=== PATIENT | female | born 1995 | race Two or more races ===

== ENCOUNTER 2020-01-14 03:10 | Emergency (ER) | payer BC ==
[2020-01-14] MEDS ORDERED: Sodium Chloride 0.9% 1,000 ML IV ONE (03:33)
--- NOTE | 2020-01-14 03:44 | EDM.PDOC ---
ED HPI GENERAL MEDICAL PROBLEM - General Chief Complaint: Abdominal Pain Stated Complaint: ABDOMINALPAIN Time Seen by Provider: 01/14/20 03:25 Source of Information: Reports: Patient History Limitations: Reports: No Limitations - History of Present Illness INITIAL COMMENTS - FREE TEXT/NARRATIVE: TRIAGE NOTE -- pt woke up around 12AM with sudden sharp pain to RLQ, claimed she vomited x 3 above. She continues to have nausea vomiting and pain in her abdomen. She had been in her usual state of health leading up to this. There is been no fever respiratory symptoms or any other symptoms of acute medical illness. There are no risk factors. Patient is healthy and takes no medications. She is a non-smoker. She has not taken any medication or tried any other measures to moderate her symptoms. Right Lower Abdomen Pain Score (Numeric/FACES): 10 - Related Data Allergies Allergy/AdvReac Type Severity Reaction Status Date / Time No Known Allergies Allergy Verified 01/14/20 03:26 Home Meds: Home Meds oxyCODONE HCl/Acetaminophen [Percocet 5-325 mg Tablet] 1 each PO Q6H PRN #10 tablet 01/14/20 [Rx] Social & Family History - Tobacco Use Smoking Status *Q: Never Smoker Second Hand Smoke Exposure: No - Caffeine Use Caffeine Use: Reports: None - Recreational Drug Use Recreational Drug Use: No ED ROS GENERAL - Review of Systems Review Of Systems: Comprehensive ROS is negative, except as noted in HPI. ED EXAM, GI/ABD - Physical Exam Exam: See Below Exam Limited By: No Limitations General Appearance: Alert, WD/WN, No Apparent Distress (But retching and uncomfortable) Eyes: Bilateral: Normal Appearance, EOMI Ears: Normal External Exam Nose: Normal Inspection Throat/Mouth: Normal Inspection Head: Atraumatic, Normocephalic Neck: Normal Inspection, Supple Respiratory/Chest: No Respiratory Distress, Lungs Clear, Normal Breath Sounds Cardiovascular: Regular Rate, Rhythm, No Edema GI/Abdominal Exam: Soft, Tender (Seems to be diffuse tenderness especially in the right lower abdomen). No: Guarding, Rebound Back Exam: Normal Inspection, CVA Tenderness (R) Extremities: Normal Inspection, Non-Tender Neurological: Alert, Oriented, Normal Cognition, No Motor/Sensory Deficits Psychiatric: Normal Affect Skin Exam: Warm, Dry Course - Vital Signs Last Recorded V/S: Last Vital Signs Temp 36.4 C 01/14/20 03:23 Pulse 95 01/14/20 03:23 Resp 15 01/14/20 03:23 BP 130/96 H 01/14/20 03:23 Pulse Ox 96 01/14/20 03:23 - Orders/Labs/Meds Orders: Active Orders 24 hr Category Date Time Status Abdomen Pelvis wo Cont [CT] Stat Exams 01/14/20 04:20 Taken CULTURE URINE [RM] Stat Lab 01/14/20 03:50 Received Labs: Laboratory Tests 01/14/20 01/14/20 01/14/20 Range/Units 03:30 03:30 03:50 WBC 11.11 H (3.98-10.04) K/mm3 RBC 4.91 (3.98-5.22) M/mm3 Hgb 14.6 (11.2-15.7) gm/dl Hct 44.1 (34.1-44.9) % MCV 89.8 (79.4-94.8) fl MCH 29.7 (25.6-32.2) pg MCHC 33.1 (32.2-35.5) g/dl RDW Std Deviation 41.4 (36.4-46.3) fL Plt Count 262 (182-369) K/mm3 MPV 11.0 (9.4-12.3) fl Neutrophils % (Manual) 68 H (40-60) % Band Neutrophils % 4 (0-10) % Lymphocytes % (Manual) 20 (20-40) % Atypical Lymphs % 0 % Monocytes % (Manual) 6 (2-10) % Eosinophils % (Manual) 2 (0.7-5.8) % Basophils % (Manual) 0 L (0.1-1.2) Platelet Estimate Adequate Plt Morphology Comment Normal RBC Morph Comment Normal Sodium 143 (136-145) mEq/L Potassium 3.5 (3.5-5.1) mEq/L Chloride 105 (98-107) mEq/L Carbon Dioxide 26 (21-32) mEq/L Anion Gap 15.5 H (5-15) BUN 12 (7-18) mg/dL Creatinine 0.9 (0.55-1.02) mg/dL Est Cr Clr Drug Dosing 78.36 mL/min Estimated GFR (MDRD) > 60 (>60) mL/min BUN/Creatinine Ratio 13.3 L (14-18) Glucose 145 H (74-106) mg/dL Calcium 9.2 (8.5-10.1) mg/dL Total Bilirubin 0.2 (0.2-1.0) mg/dL AST 18 (15-37) U/L ALT 27 (14-59) U/L Alkaline Phosphatase 67 (46-116) U/L Total Protein 7.9 (6.4-8.2) g/dl Albumin 4.1 (3.4-5.0) g/dl Globulin 3.8 gm/dL Albumin/Globulin Ratio 1.1 (1-2) Lipase 119 (73-393) U/L Urine Color Yellow (Yellow) Urine Appearance Clear (Clear) Urine pH 7.0 (5.0-8.0) Ur Specific [place] 1.025 (1.005-1.030) Urine Protein Negative (Negative) Urine Glucose (UA) Negative (Negative) Urine Ketones Negative (Negative) Urine Occult Blood 2+ H (Negative) Urine Nitrite Negative (Negative) Urine Bilirubin Negative (Negative) Urine Urobilinogen 0.2 (0.2-1.0) Ur Leukocyte Esterase Trace H (Negative) Urine RBC 5-10 H (0-5) /hpf Urine WBC 0-5 (0-5) /hpf Ur Squamous Epith Cells 0-5 (0-5) /hpf Urine Bacteria Moderate H (FEW) /hpf Urine Mucus Moderate H (FEW) /hpf Urine HCG, Qual (NEGATIVE) 01/14/20 Range/Units 03:50 WBC (3.98-10.04) K/mm3 RBC (3.98-5.22) M/mm3 Hgb (11.2-15.7) gm/dl Hct (34.1-44.9) % MCV (79.4-94.8) fl MCH (25.6-32.2) pg MCHC (32.2-35.5) g/dl RDW Std Deviation (36.4-46.3) fL Plt Count (182-369) K/mm3 MPV (9.4-12.3) fl Neutrophils % (Manual) (40-60) % Band Neutrophils % (0-10) % Lymphocytes % (Manual) (20-40) % Atypical Lymphs % % Monocytes % (Manual) (2-10) % Eosinophils % (Manual) (0.7-5.8) % Basophils % (Manual) (0.1-1.2) Platelet Estimate Plt Morphology Comment RBC Morph Comment Sodium (136-145) mEq/L Potassium (3.5-5.1) mEq/L Chloride (98-107) mEq/L Carbon Dioxide (21-32) mEq/L Anion Gap (5-15) BUN (7-18) mg/dL Creatinine (0.55-1.02) mg/dL Est Cr Clr Drug Dosing mL/min Estimated GFR (MDRD) (>60) mL/min BUN/Creatinine Ratio (14-18) Glucose (74-106) mg/dL Calcium (8.5-10.1) mg/dL Total Bilirubin (0.2-1.0) mg/dL AST (15-37) U/L ALT (14-59) U/L Alkaline Phosphatase (46-116) U/L Total Protein (6.4-8.2) g/dl Albumin (3.4-5.0) g/dl Globulin gm/dL Albumin/Globulin Ratio (1-2) Lipase (73-393) U/L Urine Color (Yellow) Urine Appearance (Clear) Urine pH (5.0-8.0) Ur Specific [place] (1.005-1.030) Urine Protein (Negative) Urine Glucose (UA) (Negative) Urine Ketones (Negative) Urine Occult Blood (Negative) Urine Nitrite (Negative) Urine Bilirubin (Negative) Urine Urobilinogen (0.2-1.0) Ur Leukocyte Esterase (Negative) Urine RBC (0-5) /hpf Urine WBC (0-5) /hpf Ur Squamous Epith Cells (0-5) /hpf Urine Bacteria (FEW) /hpf Urine Mucus (FEW) /hpf Urine HCG, Qual Negative (NEGATIVE) Meds: Medications Discontinued Medications Generic Name Dose Route Start Last Admin Trade Name Freq PRN Reason Stop Dose Admin Sodium Chloride 1,000 mls @ 1,000 mls/hr 01/14/20 03:33 01/14/20 03:41 Normal Saline IV 01/14/20 04:32 1,000 mls/hr ONETIME ONE Administration Ketorolac Tromethamine 30 mg 01/14/20 04:21 01/14/20 04:26 Toradol IVPUSH 04/16/20 04:22 30 mg ONETIME ONE Administration Ondansetron HCl 4 mg 01/14/20 04:03 01/14/20 04:09 Zofran IVPUSH 01/14/20 04:04 4 mg ONETIME ONE Administration - Re-Assessments/Exams Free Text/Narrative Re-Assessment/Exam: 01/14/20 05:09 The patient has some tenderness in the right flank as well as the right lower abdomen. There is microscopic hematuria. A CT scan was done without contrast and patient is noted to have an obstructing 4 mm stone in the distal right ureter with mild right hydronephrosis and hydroureter. Discussed fully with the patient. The usual instructions are being given. She is being given contact information for on-call urology in [place]. She is to call this morning and notified urologist of this visit and the finding. Further instructions per urology. Patient was cautioned regarding symptoms requiring return to ER. Any intractable vomiting not permitting intake of sufficient fluids, fever, other troubling symptoms return to ER. 01/14/20 05:13 Nausea has resolved completely. Pain adequately moderated with Toradol and patient is pain-free at discharge. Departure - Departure Time of Disposition: 05:13 Disposition: Home, Self-Care 01 Condition: Good Clinical Impression: Right distal ureteral calculus - Discharge Information Prescriptions: oxyCODONE HCl/Acetaminophen [Percocet 5-325 mg Tablet] 1 each PO Q6H PRN #10 tablet PRN Reason: Pain (Moderate 4-6) Instructions: Renal Colic Referrals: Car Traylor MD [Ordering Only Provider] - Forms: ED Department Discharge Additional Instructions: A small stone in the ureter which is the tube between the kidney and the bladder on the right side. The stone is about 4 mm which you should be able to pass. Drink copious amounts of fluids and maintain brisk urine output. Clear liquids are best. Return to ER for nausea and vomiting preventing good intake of fluids. Return for fever, increased pain, or any symptoms that are troubling. Call Dr. Traylor the urologist this morning and notify him of this visit and the findings. Expect additional instructions from him. You have received a liter of IV fluids in the ER as well as 30 mg of Toradol for the pain and 4 mg of Zofran for the nausea. You have a prescription for pain pills and you may use them as discussed. Sepsis Event Note - Evaluation Sepsis Screening Result: No Definite Risk - Focused Exam Vital Signs: Vital Signs Temp Pulse Resp BP Pulse Ox 01/14/20 03:23 36.4 C 95 15 130/96 H 96 Date Exam was Performed: 01/14/20 Time Exam was Performed: 05:09 - My Orders Last 24 Hours: My Active Orders 01/14/20 03:50 CULTURE URINE [RM] Stat 01/14/20 04:20 Abdomen Pelvis wo Cont [CT] Stat - Assessment/Plan Last 24 Hours: My Active Orders 01/14/20 03:50 CULTURE URINE [RM] Stat 01/14/20 04:20 Abdomen Pelvis wo Cont [CT] Stat
[2020-01-14] MEDS ORDERED: Ondansetron 4 MG/2 ML SDV IVPUSH ONE (04:03)
[2020-01-14] MEDS ORDERED: Ketorolac 30 MG/ML SDV IVPUSH ONE (04:21)
--- NOTE | 2020-01-14 06:15 | CT ---
CT abdomen and pelvis Technique: Multiple axial sections were obtained from above the dome of the diaphragm inferiorly through the pubic symphysis. Intravenous and oral contrast not utilized. Study has been performed as a ureteral stone protocol. Comparison: No prior abdominal imaging is available. Findings: Kidneys show no abnormal calcifications. Mildly dilated right ureter is seen. This finding is caused by an obstructing distal right ureteral stone located near the UVJ measuring about 4 mm in size. No other abnormal ureteral calcifications are seen. Visualized lung bases show nothing acute. Noncontrast appearance of the liver appears within normal limits. Spleen appears within normal limits. Gallbladder contains no calcified gallstones. Pancreas is within normal limits. Aorta shows no aneurysm. No retroperitoneal adenopathy or mesenteric abnormalities are seen. No pelvic mass or adenopathy is appreciated. No free fluid or inflammatory change is appreciated. Minimal free fluid is seen within the pelvis believed to be physiologic. Bone window settings were reviewed which appear within normal limits for the patient's age. Impression: 1. Dilated right-sided ureter caused by a 4 mm obstructing stone located within the distal right ureter near the UVJ. 2. No additional abnormality is identified on noncontrast CT study of the abdomen and pelvis performed as a ureteral stone protocol. Diagnostic code #3 This report was dictated in MDT I agree with preliminary report from wendy, finalized on , 5:48 AM Central Daylight Time
== END 2020-01-14 05:30 | disposition home or self-care (01) ==
LOC: JD.ED 03:10
DX: N13.2 Hydronephrosis with renal and ureteral calculous obstruction (principal)
CPT/HCPCS: 36415; 74176; 80053; 81001; 81025; 83690; 85007; 85027; 87086; 96361; 96374; 96375; 99284; J1885; J2405; J7030

== ENCOUNTER 2021-03-28 18:30 | Inpatient (IN) | payer BC ==
[2021-03-28] MEDS ORDERED: Nalbuphine 10 MG/1 ML Vial IVPUSH PRN (19:17)
[2021-03-28] MEDS ORDERED: Sodium Chloride 0.9% 10 ML Syringe FLUSH PRN (19:17)
[2021-03-28] MEDS ORDERED: Ondansetron 4 MG/2 ML SDV IVPUSH PRN (19:17)
[2021-03-28] MEDS ORDERED: Calcium Carbonate 500 MG Tab.Chew PO PRN (19:17)
[2021-03-28] MEDS ORDERED: Acetaminophen 325 MG Tab PO PRN (19:17)
[2021-03-28] MEDS ORDERED: Lactated Ringers 1,000 ML IV SCH (19:30)
[2021-03-28] MEDS ORDERED: Oxytocin/Lactated Ringers 10 UNIT/1,000 ML BAG IV SCH ×2 (19:30)
[2021-03-28] MEDS ORDERED: Citric Acid/Sodium Citrate Solution 30 ML Cup ONE (22:18)
[2021-03-28] MEDS ORDERED: Metoclopramide 10 MG/2 ML SDV ONE (22:18)
[2021-03-28] MEDS ORDERED: Citric Acid/Sodium Citrate Solution 30 ML Cup PO ONE (22:22)
[2021-03-28] MEDS ORDERED: Azithromycin 500 MG in Sodium Chloride 0.9% 250 ML IV ONE (22:22)
[2021-03-28] MEDS ORDERED: Metoclopramide 10 MG/2 ML SDV IVPUSH ONE (22:22)
--- NOTE | 2021-03-28 22:55 | PCM.LDHP ---
L&D History of Present Illness - General Date of Service: 03/28/21 Admit Problem/Dx: Patient Status Order with Admit Dx/Problem 03/28/21 19:17 Patient Status [ADT] Routine Admission Diagnosis/Problem Admission Diagnosis/Problem - History of Present Illness Introduction:: 25 year old at 38w5 here with hypertension and irregular contractions for induction of labor. PNC with myself without complications prior to now onset of gestational hypertension. - Related Data Allergies/Adverse Reactions: Allergies Allergy/AdvReac Type Severity Reaction Status Date / Time No Known Allergies Allergy Verified 03/28/21 19:57 Home Medications: Home Meds Vits #93/Iron Fum/FA [ Formula Tablet] 1 tab PO DAILY 03/28/21 [History] Past Medical History [employer] History: Reports: Social & Family History - Family History Family Medical History: No Pertinent Family History - Tobacco Use Tobacco Use Status *Q: Never Tobacco User Second Hand Smoke Exposure: No - Caffeine Use Caffeine Use: Reports: None - Recreational Drug Use Recreational Drug Use: No H&P Review of Systems - Review of Systems: Review Of Systems: See Below General: Reports: No Symptoms HEENT: Reports: No Symptoms Pulmonary: Reports: No Symptoms Cardiovascular: Reports: No Symptoms Gastrointestinal: Reports: No Symptoms Genitourinary: Reports: No Symptoms Musculoskeletal: Reports: No Symptoms Skin: Reports: No Symptoms Psychiatric: Reports: No Symptoms Neurological: Reports: No Symptoms Hematologic/Lymphatic: Reports: No Symptoms Immunologic: Reports: No Symptoms L&D Exam - Exam Exam: See Below - Vital Signs Vital Signs: Last Vital Signs Temp 37.0 C 03/28/21 18:43 Pulse 100 03/28/21 18:43 Resp 16 03/28/21 18:43 BP 132/87 03/28/21 18:43 Pulse Ox Weight: 69.989 kg - OB Specific Contraction Intensity: Mild to Moderate Movement: Active Heart Tones: Present Heart Rate (FHR) Variability: Moderate (6-25 bmp) Presentation: Vertex - Schmitt Score Schmitt Score Cervix Position: Midposition Schmitt Score Consistency: Soft Schmitt Score Effacement: 51-70% Schmitt Score Dilation: 3-4 cm Schmitt Score 's Station: -3 Schmitt Score Total: 7 - Exam General: Alert, Oriented HEENT: PERRLA, Conjunctiva Clear, EACs Clear, EOMI, Hearing Intact, Mucosa Moist & [place], Nares Patent, Normal Nasal Septum, Posterior Pharynx Clear, TMs Clear Neck: Supple, Trachea Midline Lungs: Clear to Auscultation, Normal Respiratory Effort Cardiovascular: Regular Rate, Regular Rhythm GI/Abdominal Exam: Normal Bowel Sounds, Soft, Non-Tender, No Organomegaly, No Distention, No Abnormal Bruit, No Mass, Pelvis Stable Genitourinary: Normal speculum exam Back Exam: Normal Inspection, Full Range of Motion Extremities: Normal Inspection, Normal Range of Motion, Non-Tender, No Pedal Edema, Normal Capillary Refill Skin: Warm, Dry, Intact Neurological: Cranial Nerves Intact, Reflexes Equal Bilateral Psychiatric: Alert, Normal Affect, Normal Mood - Patient Data Lab Results Last 24 hrs: Laboratory Results - last 24 hr 03/28/21 03/28/21 03/28/21 Range/Units 19:23 19:44 19:44 WBC 9.21 (3.98-10.04) K/mm3 RBC 4.52 (3.98-5.22) M/mm3 Hgb 14.4 (11.2-15.7) gm/dl Hct 41.7 (34.1-44.9) % MCV 92.3 (79.4-94.8) fl MCH 31.9 (25.6-32.2) pg MCHC 34.5 (32.2-35.5) g/dl RDW Std Deviation 45.5 (36.4-46.3) fL Plt Count 182 D (182-369) K/mm3 MPV 11.9 (9.4-12.3) fl Neut % (Auto) 72.0 H (34.0-71.1) % Lymph % (Auto) 18.9 L (19.3-51.7) % [place] % (Auto) 8.7 (4.7-12.5) % Eos % (Auto) 0.3 L (0.7-5.8) Baso % (Auto) 0.1 (0.1-1.2) % Neut # (Auto) 6.63 H (1.56-6.13) K/mm3 Lymph # (Auto) 1.74 (1.18-3.74) K/mm3 [place] # (Auto) 0.80 H (0.24-0.36) K/mm3 Eos # (Auto) 0.03 L (0.04-0.36) K/mm3 Baso # (Auto) 0.01 (0.01-0.08) K/mm3 RPR Non-reactive (NONREACTIVE) SARS-CoV-2 RNA (NELLIE) Negative (NEGATIVE) Blood Type Gel Antibody Screen 03/28/21 Range/Units 19:44 WBC (3.98-10.04) K/mm3 RBC (3.98-5.22) M/mm3 Hgb (11.2-15.7) gm/dl Hct (34.1-44.9) % MCV (79.4-94.8) fl MCH (25.6-32.2) pg MCHC (32.2-35.5) g/dl RDW Std Deviation (36.4-46.3) fL Plt Count (182-369) K/mm3 MPV (9.4-12.3) fl Neut % (Auto) (34.0-71.1) % Lymph % (Auto) (19.3-51.7) % [place] % (Auto) (4.7-12.5) % Eos % (Auto) (0.7-5.8) Baso % (Auto) (0.1-1.2) % Neut # (Auto) (1.56-6.13) K/mm3 Lymph # (Auto) (1.18-3.74) K/mm3 [place] # (Auto) (0.24-0.36) K/mm3 Eos # (Auto) (0.04-0.36) K/mm3 Baso # (Auto) (0.01-0.08) K/mm3 RPR (NONREACTIVE) SARS-CoV-2 RNA (NELLIE) (NEGATIVE) Blood Type A POSITIVE Gel Antibody Screen Negative Result Diagrams: 03/28/21 19:44 Problem List Initiated/Reviewed/Updated: Yes Orders Last 24hrs: Active Orders 24 hr Category Date Time Status Patient Status [ADT] Routine ADT 03/28/21 19:17 Active Activity as Tolerated [RC] PFP Care 03/28/21 19:17 Active Communication Order [RC] ASDIRECTED Care 03/28/21 19:17 Active Heart Tones [RC] ASDIRECTED Care 03/28/21 19:18 Active Non Stress Test [RC] PER UNIT ROUTINE Care 03/28/21 19:17 Active Notify Provider [RC] PFP Care 03/28/21 19:17 Active Notify Provider [RC] PRN Care 03/28/21 19:17 Active Peripheral IV Care [RC] . DIRECTED Care 03/28/21 19:18 Active Vital Signs [RC] PER UNIT ROUTINE Care 03/28/21 19:17 Active Regular Diet [DIET] Diet 03/29/21 Breakfast Active PATIENT RETYPE [BBK] Routine Lab 03/28/21 20:40 Ordered Acetaminophen [TylenoL] Med 03/28/21 19:17 Active 650 mg PO Q4H PRN Azithromycin [Zithromax] 500 mg Med 03/28/21 22:22 Active Sodium Chloride 0.9% [Normal Saline (AdvBag)] 250 ml IV ONETIME Calcium Carbonate [Tums] Med 03/28/21 19:17 Active 1,000 mg PO Q2H PRN Lactated Ringers [Ringers, Lactated] 1,000 ml Med 03/28/21 19:30 Active IV ASDIRECTED Nalbuphine [Nubain] Med 03/28/21 19:17 Active 10 mg IVPUSH Q2H PRN Ondansetron [Zofran] Med 03/28/21 19:17 Active 4 mg IVPUSH Q4H PRN Oxytocin/Lactated Ringers [Pitocin in LR 10 Units/1,000 Med 03/28/21 19:30 Active ML] 10 unit in 1,000 ml IV .CONTINUOUS Oxytocin/Lactated Ringers [Pitocin in LR 10 Units/1,000 Med 03/28/21 19:30 Active ML] 10 unit in 1,000 ml IV TITRATE Sodium Chloride 0.9% [Saline Flush] Med 03/28/21 19:17 Active 10 ml FLUSH ASDIRECTED PRN Electronic Heart Tones Ext w TOCO [WOMSER] Oth 03/28/21 19:17 Ordered Routine Electronic Heart Tones Internal [WOMSER] Per Unit Oth 03/28/21 19:17 Or dered Routine Peripheral IV Insertion Adult [OM.PC] Routine Oth 03/28/21 19:17 Ordered Resuscitation Status Routine Resus Stat 03/28/21 19:17 Ordered Medication Orders Acetaminophen (Acetaminophen 325 Mg Tab) 650 mg PO Q4H PRN PRN Reason: Pain (Mild 1-3) and fever Calcium Carbonate/Glycine (Calcium Carbonate 500 Mg Tab.Chew) 1,000 mg PO Q2H PRN PRN Reason: Indigestion Last Admin: 03/28/21 19:58 Dose: 1,000 mg Documented by: KELLCOL Oxytocin/Lactated Ringer's (Pitocin In Lr 10 Units/1,000 Ml) 10 unit in 1,000 mls @ 12 mls/hr IV TITRATE JUSTICE; Protocol Oxytocin/Lactated Ringer's (Pitocin In Lr 10 Units/1,000 Ml) 10 unit in 1,000 mls @ 500 mls/hr IV .CONTINUOUS JUSTICE Lactated Ringer's (Ringers, Lactated) 1,000 mls @ 100 mls/hr IV ASDIRECTED JUSTICE Azithromycin 500 mg/ Sodium (Chloride) 250 mls @ 250 mls/hr IV ONETIME ONE Stop: 03/28/21 23:21 Nalbuphine HCl (Nalbuphine 10 Mg/1 Ml Vial) 10 mg IVPUSH Q2H PRN PRN Reason: Pain Ondansetron HCl (Ondansetron 4 Mg/2 Ml Sdv) 4 mg IVPUSH Q4H PRN PRN Reason: Nausea/Vomiting Sodium Chloride (Sodium Chloride 0.9% 10 Ml Syringe) 10 ml FLUSH ASDIRECTED PRN PRN Reason: Keep Vein Open Assessment/Plan Comment:: Term , gestational hypertension. Admit, labs, AROM clear fluid. Reexam after arom demonstrated vertex. Meconium present Pitocin.
--- NOTE | 2021-03-28 22:57 | PCM.PNLD ---
Labor Progress Note - VS & Meds Vital Signs: Last Vital Signs Temp 37.0 C 03/28/21 18:43 Pulse 100 03/28/21 18:43 Resp 16 03/28/21 18:43 BP 132/87 03/28/21 18:43 Pulse Ox Active Medications: Current Medications Acetaminophen (Acetaminophen 325 Mg Tab) 650 mg PO Q4H PRN PRN Reason: Pain (Mild 1-3) and fever Calcium Carbonate/Glycine (Calcium Carbonate 500 Mg Tab.Chew) 1,000 mg PO Q2H PRN PRN Reason: Indigestion Last Admin: 03/28/21 19:58 Dose: 1,000 mg Documented by: Oxytocin/Lactated Ringer's (Pitocin In Lr 10 Units/1,000 Ml) 10 unit in 1,000 mls @ 12 mls/hr IV TITRATE JUSTICE; Protocol Oxytocin/Lactated Ringer's (Pitocin In Lr 10 Units/1,000 Ml) 10 unit in 1,000 mls @ 500 mls/hr IV .CONTINUOUS JUSTICE Lactated Ringer's (Ringers, Lactated) 1,000 mls @ 100 mls/hr IV ASDIRECTED JUSTICE Last Admin: 03/28/21 22:54 Dose: 100 mls/hr Documented by: Azithromycin 500 mg/ Sodium (Chloride) 250 mls @ 250 mls/hr IV ONETIME ONE Stop: 03/28/21 23:21 Last Admin: 03/28/21 22:55 Dose: 250 mls/hr Documented by: Nalbuphine HCl (Nalbuphine 10 Mg/1 Ml Vial) 10 mg IVPUSH Q2H PRN PRN Reason: Pain Ondansetron HCl (Ondansetron 4 Mg/2 Ml Sdv) 4 mg IVPUSH Q4H PRN PRN Reason: Nausea/Vomiting Sodium Chloride (Sodium Chloride 0.9% 10 Ml Syringe) 10 ml FLUSH ASDIRECTED PRN PRN Reason: Keep Vein Open Discontinued Medications Citric Acid/Sodium Citrate (Citric Acid/Sodium Citrate Solution 30 Ml Cup) Confirm Administered Dose 30 ml .ROUTE .STK-MED ONE Stop: 03/28/21 22:19 Citric Acid/Sodium Citrate (Citric Acid/Sodium Citrate Solution 30 Ml Cup) 30 ml PO ONETIME ONE Stop: 03/28/21 22:23 Last Admin: 03/28/21 22:55 Dose: 30 ml Documented by: Metoclopramide HCl (Metoclopramide 10 Mg/2 Ml Sdv) Confirm Administered Dose 10 mg .ROUTE .STK-MED ONE Stop: 03/28/21 22:19 Metoclopramide HCl (Metoclopramide 10 Mg/2 Ml Sdv) 10 mg IVPUSH ONETIME ONE Stop: 03/28/21 22:23 Last Admin: 03/28/21 22:55 Dose: 10 mg Documented by: - Uterine Contractions Contraction Intensity: Mild to Moderate - Monitoring Heart Rate (FHR) Variability: Moderate (6-25 bmp) Strip Review: Category I - Vaginal Exam Dilation (cm): 6 Effacement (Percent): 80 Cervical Position: Anterior Vaginal Exam Comment: exam with parts (foot) - Labor Progress (Free Text) Labor Progress: Ultrasound demonstrates head in upper abdomen. Discussed risks, benefits and alternatives and patient desires to proceed with primary section.
[2021-03-28] MEDS ORDERED: Morphine PF 10 MG/10 ML SDV ONE (23:03)
[2021-03-28] MEDS ORDERED: ceFAZolin 1 GM Vial ONE (23:03)
[2021-03-28] MEDS ORDERED: Phenylephrine 1% 10 MG/ML SDV ONE (23:03)
[2021-03-28] MEDS ORDERED: Oxytocin 10 Units/1 ML SDV ONE (23:06)
[2021-03-28] MEDS ORDERED: Ketorolac 30 MG/ML SDV ONE (23:06)
[2021-03-28] MEDS ORDERED: Bupivacaine 0.5% 30 ML SDV ONE (23:07)
[2021-03-28] MEDS ORDERED: Lactated Ringers 1,000 ML ONE (23:54)
[2021-03-29] MEDS ORDERED: diphenhydrAMINE 50 MG/ML SDV IVPUSH PRN ×2 (00:12→01:22)
--- NOTE | 2021-03-29 00:13 | PCM.POSTAN ---
POST ANESTHESIA ASSESSMENT - MENTAL STATUS Mental Status: Alert, Oriented - VITAL SIGNS Vital Signs: Last Vital Signs Temp 37.0 C 03/28/21 18:43 Pulse 100 03/28/21 18:43 Resp 16 03/28/21 18:43 BP 132/87 03/28/21 18:43 Pulse Ox - RESPIRATORY Respiratory Status: Respiratory Rate WNL, Airway Patent, O2 Saturation Stable, Supplemental Oxygen - CARDIOVASCULAR CV Status: Pulse Rate WNL, Blood Pressure Stable - GASTROINTESTINAL GI Status: No Symptoms - PAIN Pain Score: 0 - POST OP HYDRATION Hydration Status: Adequate & Stable - OBSERVATIONS Free Text/Narrative:: no anesthesia complications noted
--- NOTE | 2021-03-29 00:31 | PCM.OPNOTE ---
- General Post-Op/Procedure Note Date of Surgery/Procedure: 03/28/21 Operative Procedure(s): primary Findings: viable female, weight 3600, 8/9 apgars at 2342, footling breech Pre Op Diagnosis: breech, gestational hypertension, 38w5 Post-Op Diagnosis: Same Anesthesia Technique: Spinal Primary Surgeon: Perri Trinh Anesthesia Provider: Francisco Blackwell Life Scientists: Lali Kang Fluid Replacement, Intraop: 1,400 Output, Urine Amount: 50 EBL in mLs: 650 Complications: None Condition: Good Free Text/Narrative:: The patient was taken to the operating room where spinal anesthesia was dosed to surgical levels without difficulty. The patient was prepped and draped in the usual sterile fashion in the dorsal supine position with a leftward tilt. A Pfannenstiel skin incision was made with the scalpel and carried through to the underlying layer of fascia. The fascia was incised in the midline and extended laterally using Scott scissors. Hayden clamps were used to elevate the superior aspect of the fascial incision, which was elevated, and the underlying rectus muscles were dissected off bluntly and using Scott scissors. Attention was then turned to the inferior aspect of the fascial incision, which in similar fashion was grasped with Hayden clamps, elevated, and the underlying rectus muscles were dissected off bluntly and using the scott. The rectus muscles were dissected in the midline. The peritoneum was entered bluntly; this incision was extended superiorly and inferiorly with good visualization of the bladder. The bladder blade was inserted. The vesicouterine peritoneum was identified and entered sharply using Metzenbaum scissors. This incision was extended laterally and the bladder flap was created digitally. The bladder blade was reinserted. The lower uterine segment was incised in a transverse fashion using the scalpel and with digital traction. Clear fluid was noted. The was subsequently delivered by grasping a foot and with gentle traction bringing to incision, remainder of delivery achieved easily through normal breech maneuvers. Body and shoulders followed without difficulty. The cord was clamped and cut. The infant was subsequently handed to the awaiting pet resort concierge whose presence had been requested.. The placenta was delivered spontaneously intact with a three-vessel cord noted. The uterus was exteriorized and cleared of all clots and debris. The uterine incision was repaired in 2 layers using 0 monocryl. Hemostasis was visualized. Hemostasis was visualized bilaterally. The uterus was returned to the abdomen. The uterine incision was reexamined and it was noted to be hemostatic. The pelvis was copiously irrigated. The fascia was closed with 0 vicryl suture, and the skin was closed with 3-0 monocryl. Sponge, lap, and instrument counts were correct x2. The patient was stable at the completion of the procedure and was subsequently transferred to the recovery room in stable condition.
[2021-03-29] MEDS ORDERED: Dextrose 5%-Lactated Ringers 1,000 ML IV SCH (01:22)
[2021-03-29] MEDS ORDERED: Acetaminophen/oxyCODONE 325-5 MG Tab PO PRN (01:22)
[2021-03-29] MEDS ORDERED: ePHEDrine 50 MG/ML SDV IVPUSH PRN (01:22)
[2021-03-29] MEDS ORDERED: Naloxone 0.4 MG/ML SDV IVPUSH PRN (01:22)
[2021-03-29] MEDS ORDERED: Ketorolac 30 MG/ML SDV IVPUSH SCH (01:30)
[2021-03-29] MEDS: Ketorolac 30 MG/ML SDV IVPUSH SCH ×3 (06:13→17:51)
--- NOTE | 2021-03-29 07:43 | PCM48HPAN ---
Post Anesthesia Note - EVALUATION WITHIN 48HRS OF ANESTHETIC Vital Signs in Normal Range: Yes Patient Participated in Evaluation: Yes Respiratory Function Stable: Yes Airway Patent: Yes Cardiovascular Function Stable: Yes Hydration Status Stable: Yes Pain Control Satisfactory: Yes Nausea and Vomiting Control Satisfactory: Yes Mental Status Recovered: Yes Vital Signs: Last Vital Signs Temp 36.8 C 03/29/21 03:57 Pulse 81 03/29/21 03:57 Resp 15 03/29/21 06:57 BP 117/70 03/29/21 03:57 Pulse Ox 100 03/29/21 06:57
--- NOTE | 2021-03-29 15:32 | PCM.SN.2 ---
- Free Text/Narrative Note: Post Operative Progress Note POD #1 Subjective: Doing well overall. Ambulating without difficulty. Lochia minimal. Cazares draining clear urine. Passing flatus. Tolerating regular diet without nausea or vomiting. Pain controlled with IV Toradol at this time and not requiring any oral medications. Breast-feeding with minimal difficulty. Objective: Vitals: Vital Signs - 24 hr 03/28/21 03/29/21 03/29/21 18:43 00:06 00:10 Temperature Temperature [ 37.0 C 36.4 C Temporal] Pulse, Peripheral Pulse, 100 Peripheral [ Pulse Oximetry] Respiratory 16 12 12 Rate Blood Pressure Blood Pressure 132/87 88/52 L [Left Arm] O2 Sat by Pulse 98 98 Oximetry 03/29/21 03/29/21 03/29/21 00:22 00:35 00:43 Temperature Temperature [ 36.7 C 36.4 C 36.4 C Temporal] Pulse, Peripheral Pulse, Peripheral [ Pulse Oximetry] Respiratory 13 21 H 22 H Rate Blood Pressure Blood Pressure 86/54 L 89/76 L 107/63 [Left Arm] O2 Sat by Pulse 98 97 97 Oximetry 03/29/21 03/29/21 03/29/21 00:59 01:16 01:32 Temperature Temperature [ Temporal] Pulse, 98 80 Peripheral Pulse, Peripheral [ Pulse Oximetry] Respiratory Rate Blood Pressure 107/69 117/99 H 92/61 Blood Pressure [Left Arm] O2 Sat by Pulse 98 98 Oximetry 03/29/21 03/29/21 03/29/21 01:42 01:45 02:01 Temperature Temperature [ Temporal] Pulse, 90 100 88 Peripheral Pulse, Peripheral [ Pulse Oximetry] Respiratory Rate Blood Pressure 92/64 109/77 116/68 Blood Pressure [Left Arm] O2 Sat by Pulse 97 98 98 Oximetry 03/29/21 03/29/21 03/29/21 02:17 02:31 02:46 Temperature Temperature [ Temporal] Pulse, 81 100 87 Peripheral Pulse, Peripheral [ Pulse Oximetry] Respiratory Rate Blood Pressure 114/82 119/80 120/76 Blood Pressure [Left Arm] O2 Sat by Pulse 98 97 98 Oximetry 03/29/21 03/29/21 03/29/21 03:02 03:57 05:00 Temperature 36.8 C Temperature [ Temporal] Pulse, 95 81 Peripheral Pulse, Peripheral [ Pulse Oximetry] Respiratory 14 15 Rate Blood Pressure 124/80 117/70 Blood Pressure [Left Arm] O2 Sat by Pulse 99 100 100 Oximetry 03/29/21 03/29/21 03/29/21 06:00 06:57 08:00 Temperature Temperature [ Temporal] Pulse, Peripheral Pulse, Peripheral [ Pulse Oximetry] Respiratory 16 15 14 Rate Blood Pressure Blood Pressure [Left Arm] O2 Sat by Pulse 100 100 Oximetry 03/29/21 03/29/21 03/29/21 08:42 09:00 10:00 Temperature 36.4 C Temperature [ Temporal] Pulse, 78 Peripheral Pulse, Peripheral [ Pulse Oximetry] Respiratory 14 14 14 Rate Blood Pressure 125/72 Blood Pressure [Left Arm] O2 Sat by Pulse 100 Oximetry 03/29/21 03/29/21 03/29/21 11:00 11:58 12:00 Temperature 36.6 C Temperature [ Temporal] Pulse, 86 Peripheral Pulse, Peripheral [ Pulse Oximetry] Respiratory 16 14 14 Rate Blood Pressure 124/70 Blood Pressure [Left Arm] O2 Sat by Pulse 100 Oximetry 03/29/21 03/29/21 13:00 14:00 Temperature Temperature [ Temporal] Pulse, Peripheral Pulse, Peripheral [ Pulse Oximetry] Respiratory 14 14 Rate Blood Pressure Blood Pressure [Left Arm] O2 Sat by Pulse Oximetry Physical Exam General: Alert and oriented, no acute distress Lungs: Clear to auscultation bilaterally Heart: Regular rate and rhythm Abdomen: Soft, minimal appropriate tenderness, non-distended, fundus midline, nontender and at the umbilicus Incision: Clean, dry and intact, no erythema, bleeding or drainage with skin glue in place Extremities: No edema in bilateral lower extremities, no calf tenderness bilaterally Labs: Laboratory Results - last 24 hr 03/28/21 03/28/21 03/28/21 Range/Units 19:23 19:44 19:44 WBC 9.21 (3.98-10.04) K/mm3 RBC 4.52 (3.98-5.22) M/mm3 Hgb 14.4 (11.2-15.7) gm/dl Hct 41.7 (34.1-44.9) % MCV 92.3 (79.4-94.8) fl MCH 31.9 (25.6-32.2) pg MCHC 34.5 (32.2-35.5) g/dl RDW Std Deviation 45.5 (36.4-46.3) fL Plt Count 182 D (182-369) K/mm3 MPV 11.9 (9.4-12.3) fl Neut % (Auto) 72.0 H (34.0-71.1) % Lymph % (Auto) 18.9 L (19.3-51.7) % Phillips % (Auto) 8.7 (4.7-12.5) % Eos % (Auto) 0.3 L (0.7-5.8) Baso % (Auto) 0.1 (0.1-1.2) % Neut # (Auto) 6.63 H (1.56-6.13) K/mm3 Lymph # (Auto) 1.74 (1.18-3.74) K/mm3 Phillips # (Auto) 0.80 H (0.24-0.36) K/mm3 Eos # (Auto) 0.03 L (0.04-0.36) K/mm3 Baso # (Auto) 0.01 (0.01-0.08) K/mm3 RPR Non-reactive (NONREACTIVE) SARS-CoV-2 RNA (NELLIE) Negative (NEGATIVE) Blood Type Gel Antibody Screen 03/28/21 03/29/21 Range/Units 19:44 06:10 WBC 14.74 H (3.98-10.04) K/mm3 RBC 4.05 (3.98-5.22) M/mm3 Hgb 12.8 D (11.2-15.7) gm/dl Hct 37.0 (34.1-44.9) % MCV 91.4 (79.4-94.8) fl MCH 31.6 (25.6-32.2) pg MCHC 34.6 (32.2-35.5) g/dl RDW Std Deviation 43.7 (36.4-46.3) fL Plt Count 160 L (182-369) K/mm3 MPV 11.7 (9.4-12.3) fl Neut % (Auto) 80.2 H (34.0-71.1) % Lymph % (Auto) 11.3 L (19.3-51.7) % Phillips % (Auto) 8.3 (4.7-12.5) % Eos % (Auto) 0.1 L (0.7-5.8) Baso % (Auto) 0.1 (0.1-1.2) % Neut # (Auto) 11.83 H (1.56-6.13) K/mm3 Lymph # (Auto) 1.66 (1.18-3.74) K/mm3 Phillips # (Auto) 1.23 H (0.24-0.36) K/mm3 Eos # (Auto) 0.01 L (0.04-0.36) K/mm3 Baso # (Auto) 0.01 (0.01-0.08) K/mm3 RPR (NONREACTIVE) SARS-CoV-2 RNA (NELLIE) (NEGATIVE) Blood Type A POSITIVE Gel Antibody Screen Negative ASSESSMENT: 25-year-old female -0-0-1 s/p primary section POD #1 for breech presentation, complicated by gestational hypertension PLAN: Doing well Breast-feeding with minimal difficulty. Assist as needed Incision healing well. Continue to keep clean and dry. Lochia minimal. Continue to monitor for appropriate lochia. Continue routine post-operative care Discontinue Cazares catheter this afternoon Anticipate discharge home tomorrow or on POD #3 as indicated Danial Kumar MD 3:31 PM 03/29/2021
[2021-03-29] MEDS ORDERED: Ibuprofen 600 MG Tab PO PRN (19:30)
[2021-03-29] MEDS: Acetaminophen/oxyCODONE 325-5 MG Tab PO PRN (20:10)
[2021-03-30] MEDS: Ibuprofen 600 MG Tab PO PRN ×2 (00:36→08:16)
[2021-03-30] MEDS: Acetaminophen/oxyCODONE 325-5 MG Tab PO PRN ×2 (03:02→09:17)
--- NOTE | 2021-03-30 07:53 | PCM.DCSUM1 ---
Discharge Summary - Hospital Course Diagnosis: Stroke: No - Discharge Data Discharge Date: 03/30/21 Discharge Disposition: Admitted As Inpatient 64 Condition: Good - Referral to Home Health Primary Care Physician: Perri Trinh MD - Patient Summary/Data Operative Procedure(s) Performed: primary Hospital Course: Admitted for induction, found to be breech later, proceeded to . - Patient Instructions Diet: Usual Diet as Tolerated Activity: No Strenuous Activities Driving: May Drive Today Showering/Bathing: May Shower Notify Provider of: Fever, Increased Pain, Swelling and Redness, Drainage, Nausea and/or Vomiting - Discharge Plan *PRESCRIPTION DRUG MONITORING PROGRAM REVIEWED*: No *COPY OF PRESCRIPTION DRUG MONITORING REPORT IN PATIENT GENET: No Home Medications: Home Meds Vits #93/Iron Fum/FA [ Formula Tablet] 1 tab PO DAILY 03/28/21 [History] Referrals: Perri Trinh MD [Primary Care Provider] - (2 weeks) - Discharge Summary/Plan Comment DC Time >30 min.: No - General Info Date of Service: 03/30/21 Functional Status: Reports: Pain Controlled - Review of Systems General: Reports: No Symptoms HEENT: Reports: No Symptoms Pulmonary: Reports: No Symptoms Cardiovascular: Reports: No Symptoms Gastrointestinal: Reports: No Symptoms Genitourinary: Reports: No Symptoms Musculoskeletal: Reports: No Symptoms Skin: Reports: No Symptoms Neurological: Reports: No Symptoms Psychiatric: Reports: No Symptoms - Patient Data Vitals - Most Recent: Last Vital Signs Temp 36.2 C 03/30/21 03:05 Pulse 88 03/30/21 03:05 Resp 14 03/30/21 03:05 BP 124/72 03/30/21 03:05 Pulse Ox 99 03/30/21 03:05 Weight - Most Recent: 69.989 kg I&O - Last 24 hours: Intake & Output 03/29/21 03/30/21 03/30/21 22:59 06:59 14:59 Output Total 1250 400 Balance -1250 -400 Med Orders - Current: Current Medications Diphenhydramine HCl (Diphenhydramine 50 Mg/Ml Sdv) 25 mg IVPUSH Q6H PRN PRN Reason: Itching or Nausea Ephedrine Sulfate (Ephedrine 50 Mg/Ml Sdv) 5 mg IVPUSH SEECOMMENT PRN PRN Reason: Other Ibuprofen (Ibuprofen 600 Mg Tab) 600 mg PO Q6H PRN PRN Reason: mild pain or fever Last Admin: 03/30/21 00:36 Dose: 600 mg Documented by: Naloxone HCl (Naloxone 0.4 Mg/Ml Sdv) 0.1 mg IVPUSH SEECOMMENT PRN PRN Reason: Respiratory Depression Oxycodone/Acetaminophen (Acetaminophen/Oxycodone 325-5 Mg Tab) 1 tab PO Q4H PRN PRN Reason: Pain (moderate 4-6) Last Admin: 03/30/21 03:02 Dose: 1 tab Documented by: Oxycodone/Acetaminophen (Acetaminophen/Oxycodone 325-5 Mg Tab) 2 tab PO Q4H PRN PRN Reason: Pain (severe 7-10) Discontinued Medications Acetaminophen (Acetaminophen 325 Mg Tab) 650 mg PO Q4H PRN PRN Reason: Pain (Mild 1-3) and fever Bupivacaine HCl (Bupivacaine 0.5% 30 Ml Sdv) Confirm Administered Dose 30 ml .ROUTE .STK-MED ONE Stop: 03/28/21 23:08 Last Admin: 03/28/21 23:37 Dose: 18 ml Documented by: Calcium Carbonate/Glycine (Calcium Carbonate 500 Mg Tab.Chew) 1,000 mg PO Q2H PRN PRN Reason: Indigestion Last Admin: 03/28/21 19:58 Dose: 1,000 mg Documented by: Cefazolin Sodium (Cefazolin 1 Gm Vial) Confirm Administered Dose 2 gm .ROUTE .STK-MED ONE Stop: 03/28/21 23:04 Citric Acid/Sodium Citrate (Citric Acid/Sodium Citrate Solution 30 Ml Cup) Confirm Administered Dose 30 ml .ROUTE .STK-MED ONE Stop: 03/28/21 22:19 Last Admin: 03/28/21 22:59 Dose: Not Given Documented by: Citric Acid/Sodium Citrate (Citric Acid/Sodium Citrate Solution 30 Ml Cup) 30 ml PO ONETIME ONE Stop: 03/28/21 22:23 Last Admin: 03/28/21 22:55 Dose: 30 ml Documented by: Diphenhydramine HCl (Diphenhydramine 50 Mg/Ml Sdv) 25 mg IVPUSH Q6H PRN PRN Reason: Itching Oxytocin/Lactated Ringer's (Pitocin In Lr 10 Units/1,000 Ml) 10 unit in 1,000 mls @ 12 mls/hr IV TITRATE JUSTICE; Protocol Oxytocin/Lactated Ringer's (Pitocin In Lr 10 Units/1,000 Ml) 10 unit in 1,000 mls @ 500 mls/hr IV .CONTINUOUS JUSTICE Lactated Ringer's (Ringers, Lactated) 1,000 mls @ 100 mls/hr IV ASDIRECTED [facility] Last Admin: 03/28/21 22:54 Dose: 100 mls/hr Documented by: Azithromycin 500 mg/ Sodium (Chloride) 250 mls @ 250 mls/hr IV ONETIME ONE Stop: 03/28/21 23:21 Last Admin: 03/28/21 22:55 Dose: 250 mls/hr Documented by: Dextrose/Lactated Ringer's (Dextrose 5%-Lactated Ringers) 1,000 mls @ 125 mls/hr IV ASDIRECTED [facility] Stop: 03/29/21 09:21 Last Admin: 03/29/21 01:40 Dose: 125 mls/hr Documented by: Lactated Ringer's (Ringers, Lactated) Confirm Administered Dose 1,000 mls @ as directed .ROUTE .STK-MED ONE Stop: 03/28/21 23:55 Ibuprofen (Ibuprofen 600 Mg Tab) 600 mg PO Q6H PRN PRN Reason: mild pain or fever Ketorolac Tromethamine (Ketorolac 30 Mg/Ml Sdv) 30 mg IVPUSH Q6H [facility] Stop: 03/29/21 13:31 Last Admin: 03/29/21 03:19 Dose: Not Given Documented by: Ketorolac Tromethamine (Ketorolac 30 Mg/Ml Sdv) 30 mg IVPUSH Q6H [facility] Stop: 03/29/21 18:01 Last Admin: 03/29/21 17:51 Dose: 30 mg Documented by: Ketorolac Tromethamine (Ketorolac 30 Mg/Ml Sdv) Confirm Administered Dose 30 mg .ROUTE .STK-MED ONE Stop: 03/28/21 23:07 Metoclopramide HCl (Metoclopramide 10 Mg/2 Ml Sdv) Confirm Administered Dose 10 mg .ROUTE .STK-MED ONE Stop: 03/28/21 22:19 Last Admin: 03/28/21 22:59 Dose: Not Given Documented by: Metoclopramide HCl (Metoclopramide 10 Mg/2 Ml Sdv) 10 mg IVPUSH ONETIME ONE Stop: 03/28/21 22:23 Last Admin: 03/28/21 22:55 Dose: 10 mg Documented by: Morphine Sulfate (Morphine Pf 10 Mg/10 Ml Sdv) Confirm Administered Dose 10 mg .ROUTE .STK-MED ONE Stop: 03/28/21 23:04 Nalbuphine HCl (Nalbuphine 10 Mg/1 Ml Vial) 10 mg IVPUSH Q2H PRN PRN Reason: Pain Ondansetron HCl (Ondansetron 4 Mg/2 Ml Sdv) 4 mg IVPUSH Q4H PRN PRN Reason: Nausea/Vomiting Oxytocin (Oxytocin 10 Units/1 Ml Sdv) Confirm Administered Dose 10 unit .ROUTE .STK-MED ONE Stop: 03/28/21 23:07 Phenylephrine HCl (Phenylephrine 1% 10 Mg/Ml Sdv) Confirm Administered Dose 10 mg .ROUTE .STK-MED ONE Stop: 03/28/21 23:04 Sodium Chloride (Sodium Chloride 0.9% 10 Ml Syringe) 10 ml FLUSH ASDIRECTED PRN PRN Reason: Keep Vein Open - Exam General: Reports: Alert, Oriented HEENT: Reports: Pupils Equal, Pupils Reactive, EOMI, Mucous Membr. Moist/[place] Neck: Reports: Supple Lungs: Reports: Clear to Auscultation, Normal Respiratory Effort Cardiovascular: Reports: Regular Rate, Regular Rhythm GI/Abdominal Exam: Normal Bowel Sounds, Soft, Non-Tender, No Organomegaly, No Distention, No Abnormal Bruit, No Mass, Pelvis Stable Rectal (Female) Exam: Normal Exam, Normal Rectal Tone Back Exam: Reports: Normal Inspection, Full Range of Motion Extremities: Normal Inspection, Normal Range of Motion, Non-Tender, No Pedal Edema, Normal Capillary Refill Skin: Reports: Warm, Dry, Intact Wound/Incisions: Reports: Healing Well Neurological: Reports: No New Focal Deficit Psy/Mental Status: Reports: Alert, Normal Affect, Normal Mood
== END 2021-03-30 13:00 | disposition critical access hospital (66) | DRG 540 ==
LOC: JD.OBCHECK 18:30 → JD.OB 18:41 → JD.OBCHECK 23:42 → JD.OB 23:43
PROVIDERS: ADMIT Obstetrics & Gynecology; ATTEND Obstetrics & Gynecology
PROC: 10D00Z1 Extraction of Products of Conception, Low, Open Approach (ICD-10-PCS; principal; 2021-03-28)
PROC: 10907ZC Drainage of Amniotic Fluid, Therapeutic from Products of Conception, Via Natural or Artificial Opening (ICD-10-PCS; 2021-03-28)
DX: O13.4 Gestational [pregnancy-induced] hypertension without significant proteinuria, complicating childbirth (principal); O32.8XX0 Maternal care for other malpresentation of fetus, not applicable or unspecified; Z3A.38 38 weeks gestation of pregnancy; Z37.0 Single live birth; Z20.822 Contact with and (suspected) exposure to COVID-19; O77.0 Labor and delivery complicated by meconium in amniotic fluid
CPT/HCPCS: 01961; 36415; 59025; 85025; 86592; 86850; 86900; 86901; 99140; A9270-GY; J0456; J0690; J1885; J2270; J2370; J2590; J2765; J3490; J7050; J7120; J7121; U0002

== ENCOUNTER 2021-09-04 11:37 | Emergency (ER) | payer BC, MEDICAID ==
[2021-09-04] MEDS ORDERED: Sodium Chloride 0.9% 10 ML Syringe FLUSH PRN (11:53)
[2021-09-04] MEDS ORDERED: Ondansetron 4 MG Tab.DIS PO ONE (12:14)
--- NOTE | 2021-09-04 12:15 | EDM.PDOC ---
ED HPI GENERAL MEDICAL PROBLEM - General Chief Complaint: Abdominal Pain Stated Complaint: SIDE PAIN Time Seen by Provider: 09/04/21 11:45 Source of Information: Reports: Patient, RN Notes Reviewed History Limitations: Reports: No Limitations - History of Present Illness INITIAL COMMENTS - FREE TEXT/NARRATIVE: Patient is a 26-year-old female presenting to the emergency department for evaluation of intermittent abdominal cramping, and nausea. Patient reports on Saturday she developed symptoms of nausea, vomiting, diarrhea, and fever. The vomiting, diarrhea, and fever resolved on Saturday, however she continues to have nausea and occasional abdominal cramping. She reports that it feels like the cramping is at times in her right lower quadrant, however she also experiences in other parts of her abdomen. She denies the possibility of . Patient reports that her boyfriend is ill with similar symptoms. Right Lower Abdomen Pain Score (Numeric/FACES): 5 - Related Data Allergies Allergy/AdvReac Type Severity Reaction Status Date / Time No Known Allergies Allergy Verified 09/04/21 11:51 Home Meds: Home Meds Ondansetron [Zofran ODT] 4 mg PO Q6H PRN #10 tab.dis 09/04/21 [Rx] Past Medical History Genitourinary History: Reports: Renal Calculus, UTI, Recurrent [employer] History: Reports: - Infectious Disease History Infectious Disease History: Reports: Novel Coronavirus - Past Surgical History Female Surgical History: Reports: Section Social & Family History - Family History Family Medical History: No Pertinent Family History - Tobacco Use Tobacco Use Status *Q: Never Tobacco User Second Hand Smoke Exposure: No - Caffeine Use Caffeine Use: Reports: Coffee - Recreational Drug Use Recreational Drug Use: No ED ROS GENERAL - Review of Systems Review Of Systems: Comprehensive ROS is negative, except as noted in HPI. ED EXAM, GI/ABD - Physical Exam Exam: See Below Exam Limited By: No Limitations General Appearance: Alert, WD/WN, No Apparent Distress Respiratory/Chest: No Respiratory Distress, Lungs Clear, Normal Breath Sounds, No Accessory Muscle Use, Chest Non-Tender Cardiovascular: Normal Peripheral Pulses, Regular Rate, Rhythm, No Edema, No Gallop, No JVD, No Murmur, No Rub GI/Abdominal Exam: Normal Bowel Sounds, Soft, No Organomegaly, No Distention, No Abnormal Bruit, No Mass, Pelvis Stable, Tender (mild generalized). No: Guarding, Rigid, Rebound Neurological: Alert, Oriented, Normal Cognition, Normal Gait, No Motor/Sensory Deficits Psychiatric: Normal Affect, Normal Mood Skin Exam: Warm, Dry, Intact, Normal Color, No Rash Course - Vital Signs Last Recorded V/S: Last Vital Signs Temp 97.6 F 09/04/21 11:49 Pulse 77 09/04/21 14:42 Resp 14 09/04/21 14:42 BP 106/74 09/04/21 14:42 Pulse Ox 96 09/04/21 14:42 - Orders/Labs/Meds Labs: Laboratory Tests 09/04/21 09/04/21 09/04/21 Range/Units 12:05 13:20 13:20 WBC 5.99 (3.98-10.04) K/mm3 RBC 4.38 (3.98-5.22) M/mm3 Hgb 13.2 (11.2-15.7) gm/dl Hct 39.7 (34.1-44.9) % MCV 90.6 (79.4-94.8) fl MCH 30.1 (25.6-32.2) pg MCHC 33.2 (32.2-35.5) g/dl RDW Std Deviation 40.0 (36.4-46.3) fL Plt Count 214 (182-369) K/mm3 MPV 10.3 (9.4-12.3) fl Neut % (Auto) 61.7 (34.0-71.1) % Lymph % (Auto) 24.5 (19.3-51.7) % [place] % (Auto) 12.2 (4.7-12.5) % Eos % (Auto) 1.2 (0.7-5.8) Baso % (Auto) 0.2 (0.1-1.2) % Neut # (Auto) 3.70 (1.56-6.13) K/mm3 Lymph # (Auto) 1.47 (1.18-3.74) K/mm3 [place] # (Auto) 0.73 H (0.24-0.36) K/mm3 Eos # (Auto) 0.07 (0.04-0.36) K/mm3 Baso # (Auto) 0.01 (0.01-0.08) K/mm3 Sodium 144 (136-145) mEq/L Potassium 3.7 (3.5-5.1) mEq/L Chloride 106 (98-107) mEq/L Carbon Dioxide 29 (21-32) mEq/L Anion Gap 12.7 (5-15) BUN 14 (7-18) mg/dL Creatinine 0.7 (0.55-1.02) mg/dL Est Cr Clr Drug Dosing 98.98 mL/min Estimated GFR (MDRD) > 60 (>60) mL/min BUN/Creatinine Ratio 20.0 H (14-18) Glucose 92 (70-99) mg/dL Calcium 9.1 (8.5-10.1) mg/dL Total Bilirubin 0.3 (0.2-1.0) mg/dL AST 17 (15-37) U/L ALT 29 (14-59) U/L Alkaline Phosphatase 57 (46-116) U/L Total Protein 7.1 (6.4-8.2) g/dl Albumin 3.6 (3.4-5.0) g/dl Globulin 3.5 gm/dL Albumin/Globulin Ratio 1.0 (1-2) HCG, Qual (NEGATIVE) Urine Color Yellow (Yellow) Urine Appearance Clear (Clear) Urine pH 5.5 (5.0-8.0) Ur Specific [place] 1.020 (1.005-1.030) Urine Protein Negative (Negative) Urine Glucose (UA) Negative (Negative) Urine Ketones Trace H (Negative) Urine Occult Blood Negative (Negative) Urine Nitrite Negative (Negative) Urine Bilirubin Negative (Negative) Urine Urobilinogen 0.2 (0.2-1.0) Ur Leukocyte Esterase Negative (Negative) Urine RBC 0-5 (0-5) /hpf Urine WBC 0-5 (0-5) /hpf Ur Squamous Epith Cells 5-10 H (0-5) /hpf Urine Bacteria Moderate H (FEW) /hpf Urine Mucus Moderate H (FEW) /hpf 09/04/21 Range/Units 13:20 WBC (3.98-10.04) K/mm3 RBC (3.98-5.22) M/mm3 Hgb (11.2-15.7) gm/dl Hct (34.1-44.9) % MCV (79.4-94.8) fl MCH (25.6-32.2) pg MCHC (32.2-35.5) g/dl RDW Std Deviation (36.4-46.3) fL Plt Count (182-369) K/mm3 MPV (9.4-12.3) fl Neut % (Auto) (34.0-71.1) % Lymph % (Auto) (19.3-51.7) % [place] % (Auto) (4.7-12.5) % Eos % (Auto) (0.7-5.8) Baso % (Auto) (0.1-1.2) % Neut # (Auto) (1.56-6.13) K/mm3 Lymph # (Auto) (1.18-3.74) K/mm3 [place] # (Auto) (0.24-0.36) K/mm3 Eos # (Auto) (0.04-0.36) K/mm3 Baso # (Auto) (0.01-0.08) K/mm3 Sodium (136-145) mEq/L Potassium (3.5-5.1) mEq/L Chloride (98-107) mEq/L Carbon Dioxide (21-32) mEq/L Anion Gap (5-15) BUN (7-18) mg/dL Creatinine (0.55-1.02) mg/dL Est Cr Clr Drug Dosing mL/min Estimated GFR (MDRD) (>60) mL/min BUN/Creatinine Ratio (14-18) Glucose (70-99) mg/dL Calcium (8.5-10.1) mg/dL Total Bilirubin (0.2-1.0) mg/dL AST (15-37) U/L ALT (14-59) U/L Alkaline Phosphatase (46-116) U/L Total Protein (6.4-8.2) g/dl Albumin (3.4-5.0) g/dl Globulin gm/dL Albumin/Globulin Ratio (1-2) HCG, Qual Negative (NEGATIVE) Urine Color (Yellow) Urine Appearance (Clear) Urine pH (5.0-8.0) Ur Specific [place] (1.005-1.030) Urine Protein (Negative) Urine Glucose (UA) (Negative) Urine Ketones (Negative) Urine Occult Blood (Negative) Urine Nitrite (Negative) Urine Bilirubin (Negative) Urine Urobilinogen (0.2-1.0) Ur Leukocyte Esterase (Negative) Urine RBC (0-5) /hpf Urine WBC (0-5) /hpf Ur Squamous Epith Cells (0-5) /hpf Urine Bacteria (FEW) /hpf Urine Mucus (FEW) /hpf Meds: Medications Discontinued Medications Generic Name Dose Route Start Last Admin Trade Name Freq PRN Reason Stop Dose Admin Ondansetron HCl 4 mg 09/04/21 12:14 09/04/21 12:45 Ondansetron 4 Mg Tab.Dis PO 09/04/21 12:15 4 mg ONETIME ONE Administration Sodium Chloride 10 ml 09/04/21 11:53 09/04/21 13:57 Sodium Chloride 0.9% 10 Ml Syringe FLUSH 10 ml ASDIRECTED PRN Administration Keep Vein Open - Re-Assessments/Exams Free Text/Narrative Re-Assessment/Exam: Patient is a 26-year-old female presenting to the emergency department for evaluation of nausea and intermittent abdominal cramping. She did have vomiting and diarrhea on Saturday which resolved on Saturday. Boyfriend is sick with similar symptoms. On exam, she has mild generalized tenderness to palpation throughout her abdomen. There is no localized tenderness in right lower quadrant. No abdominal rigidity or rebound tenderness. Patient is likely suffering from viral gastroenteritis. I have ordered blood work, urinalysis, and qualitative hCG. We will give her Zofran ODT. 09/04/21 14:31 Hematology is unremarkable. Urinalysis negative for blood or infection. hCG is negative. Results discussed with patient. She reports that intermittent cramping is minimal and does not feel like she needs dicyclomine. I will however send prescription for Zofran as needed for nausea. Discussed she is likely suffering from viral gastroenteritis and should continue to improve. Discussed return precautions. Discharge instructions as documented. Departure - Departure Time of Disposition: 14:32 Disposition: Home, Self-Care 01 Condition: Good Clinical Impression: Gastroenteritis - Discharge Information *PRESCRIPTION DRUG MONITORING PROGRAM REVIEWED*: No *COPY OF PRESCRIPTION DRUG MONITORING REPORT IN PATIENT GENET: No Prescriptions: Ondansetron [Zofran ODT] 4 mg PO Q6H PRN #10 tab.dis PRN Reason: Nausea/Vomiting Instructions: Viral Gastroenteritis, Adult, [id number] Referrals: Saurabh Armenta MD [Primary Care Provider] - Forms: ED Department Discharge Additional Instructions: Recommend bland diet or clear liquids. Use Zofran as needed for nausea. Return to ER for new or worsening symptoms. Sepsis Event Note (ED) - Evaluation Sepsis Screening Result: No Definite Risk
== END 2021-09-04 14:38 | disposition home or self-care (01) ==
LOC: JD.ED 11:37
DX: K52.9 Noninfective gastroenteritis and colitis, unspecified (principal)
CPT/HCPCS: 36415; 80053; 81001; 84703; 85025; 99284; A9270

== ENCOUNTER 2023-01-24 14:29 | Emergency (ER) | payer BC, MEDICAID | END 2023-01-24 17:54 | disposition home or self-care (01) | LOC: JD.ED 14:29 | DX: O03.9 Complete or unspecified spontaneous abortion without complication (principal); Z86.16 Personal history of COVID-19 | CPT/HCPCS: 36415; 76817; 76817-26; 84702; 85014; 85018; 86850; 86900; 86901; 99284 ==